=== PATIENT | male | born 1975 | race Caucasian/White ===

== ENCOUNTER 2020-09-29 19:36 | Emergency (ER) | payer SELFPAY ==
[2020-09-29 19:36] VITALS: BP 0/0; PULSE 0; RESP 14; TEMP 35.6; O2SAT 0; BMI 26.6
[2020-09-29] MEDS: calcium chloride 10% Syr 10 mL 1 GM IVP (19:36)
[2020-09-29] MEDS: EPINEPHrine 0.1 mg/mL SYR 10 mL 1 MG IVP ×5 (19:36→19:47)
[2020-09-29] MEDS: sodium bicarbonate 8.4% 1 mEq/mL 50mL Syr 50 MEQ IVP (19:36)
[2020-09-29 20:02] LABS: Glucose Point of Care 228 mg/dL (70-110)
--- NOTE | 2020-09-29 21:48 | PC.NURSE ---
Pt arrived to ER @ 1926, CPR in progress. Refer to CODE Flow sheet in pt chart. Family arrived during CODE and placed in VF room. TOD called @ 1926, family (life partner, daughter and son-in-law) brought to beside. Pt belongings including wallet, ring, watch and pt clothes sent with family. Single small bag with white unknown substance found in pt front pocket turned over to security by myself. MTS notified at 2100. Lewis Klein released body to home. Per pt Morales Frazier - family requests [facility] in [place].
--- NOTE | 2020-09-29 22:18 | PC.NURSE ---
Ryanne time 22:15 Per MTS - family declined donation. Pt can be release to Home
[2020-09-29] MEDS: naloxone 0.4 mg/ml SDV 1.2 MG IVP (23:45)
--- NOTE | 2020-09-29 23:53 | PC.NURSE ---
please see code sheet for times of meds; pulse checks; shock; and time of
--- NOTE | 2020-09-30 00:23 | W.ED.CPR ---
HPI - CPR General: Chief Complaint: Cardiac Arrest/CPR Stated Complaint: cpr Time Seen by Provider: 09/29/20 19:58 History of Present Illness: HPI narrative: History is obtained from the patient's significant other and EMS. EMS was called because of respiratory distress. They found the patient hyperventilating and not responding appropriately to questions. Upon loading the patient in the ambulance, he became apneic. RSI was attempted at that point. I gel was placed. The patient lost a pulse after a period of bradycardia and was then asystole. He presents to the emergency department with I gel in place, bag valve respirations, and chest compressions going. He had had [address] of epinephrine on the way here. Patient's family states that he had been sick for couple of days, and had not gone to see a physician. He had had a cough and some shortness of breath evidently. MD complaint: stopped breathing Onset (ago): unknown Place: street Bystander CPR performed: No AED applied by bystander/certified first assistant: Yes Shock advised: No Initial findings in the field: agonal and good pulses ROSC in the field: No Associated injuries: No Known history of: other (No known history) Treatments prior to arrival: other airway device and epinephrine mgs # (4) Review of Systems General: Reports: ROS unobtainable due to medical condition Physical Exam Const: EXAM LIMITATIONS: altered mental status (Unresponsive) HENMT: COMMON NORMALS: normocephalic and Normal external nose present HEAD & SCALP: normocephalic FACE & SINUS: face symmetric NOSE: Normal external nose present Eye: PUPIL: Yes Fixed pupils Chest: CHEST: Yes abnormal inspection of the chest (chest compressions) Resp: EFFORT & INSPECTION: Yes symmetric chest movement and No tracheal deviation AUSCULTATION: diminished lung sounds (but equal) Cardio: RHYTHM: other (pulseless, asystole) GI: INSPECTION: Yes abdominal distension (mild) Extremity: GENERAL: Yes cyanosis Neuro: BALJINDER COMA SCALE: document GCS findings Baljinder coma scale eye opening: None Baljinder coma scale verbal response: None Baljinder coma scale motor response: None [place] coma scale total score: 3 Course Vital Signs: Vital signs: Vital Signs Temperature 96.0 F L 09/29/20 19:36 Pulse Rate 0 L 09/29/20 19:36 Respiratory Rate 14 09/29/20 19:36 Blood Pressure 0/0 09/29/20 19:36 Pulse Oximetry 0 L 09/29/20 19:36 MDM - Cardiac Arrest/CPR MDM Narrative: Medical decision making narrative: Patient presented in cardiac arrest, asystole on the monitor with CPR in progress. I gel was immediately removed by Dr. Jean, and the patient was intubated quickly and successfully on the first try. Breath sounds were equal following. Patient was given a total of 10 mg of epinephrine, calcium chloride, sodium bicarbonate, 1.6 mg of naloxone. Glucose was rechecked at 228. It was 123 in the field. At 1 point during CPR pulse check, ventricular fibrillation was seen on the monitor. He was shocked at 200 J, but on the next pulse check, the patient was asystole again. Given the history given by the /significant other, and with the respiratory distress noted by EMS prior to him going down, one must assume that he of respiratory failure presumably due to pneumonia. Interestingly an unknown white substance in a small plastic bag was found on the patient's person along with what appears to be a fentanyl patch. Unknown whether these are related to the patient decompensation. After a total of 43 minutes or so of resuscitative efforts with no meaningful change in the patient's condition, and a blood gas obtained showing a pH of 6.68, bedside echo showing no cardiac activity, the code was called at 1747. Lab Data: Labs: Lab Results 09/29/20 Range/Units 19:38 POC Glucose 228 H (70-110) mg/dL Critical Care Time Critical Care Time: Critical Care Time: Yes Total Critical Care Time: 30 Attestation: This case had a high probability of a clinically significant, sudden, or life threatening deterioration of this patient's condition which required my full and direct attention, intervention and personal management. Discharge Plan Discharge Patient Disposition: Clinical Impression: Cardiac arrest Acute respiratory failure Qualifiers: Respiratory failure complication: unspecified whether with hypoxia or hypercapnia Qualified Code(s): J96.00 - Acute respiratory failure, unspecified whether with hypoxia or hypercapnia Probable Cause of Probable cause of : Cardiac arrest due to respiratory disorder Coding Level of Care Code ED Lna for Mena Fwd Exam Comprehensive
--- NOTE | 2020-09-30 02:45 | PC.NURSE ---
Pt arrived to ER @ 192, CPR in progress. Refer to CODE Flow sheet in pt chart. Family arrived during CODE and placed in VF room. TOD called @ 194, family (life partner, daughter and son-in-law) brought to beside. Pt belongings including wallet, ring, watch and pt clothes sent with family. Single small bag with white unknown substance found in pt front pocket turned over to security by myself. MTS notified at 2100. Lewis Klein released body to home. Per pt Morales Frazier - family requests [facility] in [place].
== END 2020-09-29 22:30 | disposition expired ==
PROVIDERS: Emergency Provider Emergency Medicine
DX: I46.9 Cardiac arrest, cause unspecified (principal); J96.00 Acute respiratory failure, unspecified whether with hypoxia or hypercapnia
CPT/HCPCS: 31500; 36416; 82962; 99291; J0171; J2310; J3475; J3490